=== PATIENT | female | born 1995 | race Two or more races ===

== ENCOUNTER 2022-12-18 10:57 | Inpatient (IN) | payer OTHER ==
[~2022-12-18] VITALS: Ht 157.5 cm; Wt 82.6 kg
[2022-12-23] MEDS ORDERED: FAMOTIDINE40 MG (08:34)
== END 2022-12-24 11:04 | disposition home or self-care (01) | DRG 807 ==
LOC: OB/GYN 12-22 19:10 → LDR 12-22 19:10 → OB/GYN 12-22 22:44 → SURG 12-28 13:15
PROVIDERS: ADMIT Specialist; ATTEND Specialist
PROC: 10E0XZZ Delivery of Products of Conception, External Approach (ICD-10-PCS; principal; 2022-12-22)
PROC: 0HQ9XZZ Repair Perineum Skin, External Approach (ICD-10-PCS; 2022-12-22)
PROC: 4A1HXCZ Monitoring of Products of Conception, Cardiac Rate, External Approach (ICD-10-PCS; 2022-12-22)
DX: O70.0 First degree perineal laceration during delivery (principal); Z37.0 Single live birth; Z3A.39 39 weeks gestation of pregnancy; Z20.822 Contact with and (suspected) exposure to COVID-19